=== PATIENT | male | born 1985 | race Two or more races ===

== ENCOUNTER 2016-09-16 05:55 | Emergency (ER) | payer BC ==
[2016-09-16 06:18] VITALS: BMI 28.1
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
[2016-09-16 07:19] LABS: LEUKOCYTES/URINE NEG (NEGATIVE); NITRITE/URINE NEG (NEGATIVE); RBC/URINE 0-2 (0-2); URINE OCCULT BLOOD NEG (NEG/TRACE); WBC/URINE 0-2 (0-2)
[2016-09-16 07:28] LABS: MPV 7.1 fL (7.4-10.4)
[2016-09-16 07:31] LABS: ALL NEG? YES; MDMA* NEG (NEGATIVE); METHAMPHETAMINES NEG (NEGATIVE); OXYCODONE NEG (NEGATIVE)
[2016-09-16 07:47] LABS: BLOOD UREA NITROGEN 12 MG/DL (9-20); CALCULATED OSMOLALITY 273 MOs/Kg (270-290); CHLORIDE 105 mEq/L (98-107); ETOH-MGDL 22 mg/dL; GLUCOSE 95 mg/dL (70-99); SODIUM LEVEL 142 mEq/L (137-146); TOTAL PROTEIN 8.4 G/DL (6.3-8.2)
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
[2016-09-16] MEDS ORDERED: IBUPROFEN 600 MG TAB PO ONE (08:27)
[2016-09-16] MEDS ORDERED: ACETAMINOPHEN 325 MG/TAB TABLET PO ONE (08:27)
[2016-09-16 08:41] VITALS: BP 139/66; PULSE 77; TEMP 98.6
== END 2016-09-16 08:44 | disposition home or self-care (01) ==
LOC: ED 05:55
DX: R41.3 Other amnesia (principal); S06.0X9A Concussion with loss of consciousness of unspecified duration, initial encounter; V49.9XXA Car occupant (driver) (passenger) injured in unspecified traffic accident, initial encounter; Y93.9 Activity, unspecified
CPT/HCPCS: 36415; 70450; 80053; 80307; 81001; 85027; 93005; 99284; J3490